=== PATIENT | female | born 1940 | race African-American/Black ===

== ENCOUNTER 2016-07-04 21:48 | Emergency (ER) | payer MEDICARE ==
[~2016-07-04] VITALS: Ht 165.1 cm; Wt 50.0 kg
[~2016-07-04 21:48] MED LIST: AMIODARONE HCL 50MG/ML 3ML VIAL IV ONE; EPINEPHRINE 0.1MG/ML (1:10,000) 10ML SYR ONE
[2016-07-04 21:53] VITALS: BP 0/0
[2016-07-04] MEDS ORDERED: SODIUM CHLORIDE 0.9% 1,000 ML IV ONE (22:02)
== END 2016-07-04 22:13 | disposition expired ==
LOC: ER 21:51
DX: I46.9 Cardiac arrest, cause unspecified (principal)
CPT/HCPCS: 31500; 92950; 99285; J0171; J0282; 94002; J7030; A4315